=== PATIENT | female | born 2000 | race African-American/Black ===

== ENCOUNTER 2020-03-26 12:52 | Inpatient (IN) | payer OTHER ==
--- NOTE | 2020-03-26 13:44 | HP ---
Past Medical History - Primary Care Physician PCP:: MNR - Admission Chief Complaint: Sent from clinic for delivery due to transverse presentation and oligohydramnios History Source: Patient - Past Surgical History Past Surgical History: Yes: None Hx Myomectomy: No Hx Transabdominal Cerclage: No - Smoking History Smoking history: Unknown if ever smoked - Alcohol/Substance Use Hx Alcohol Use: No History of Substance Use: reports: None - Social History History of Recent Travel: No Home Medications - Allergies Allergies/Adverse Reactions: Allergies Allergy/AdvReac Type Severity Reaction Status Date / Time No Known Allergies Allergy Verified 03/26/20 13:37 Physical Exam - Maternity Constitutional: Yes: No Distress Cardiovascular: Yes: Regular Rate and Rhythm Lungs: Clear to auscultation - Abdominal Exam/OB Number of Fetuses: Single Presentation: Transverse Contractions: Yes Regularity: Irritability Intensity: Unaware Monitor Mode: External Heart Rate (range): 130 Category: I Accelerations: Uniform Decelerations: None - Vaginal Exam/OB Vaginal Bleeding: No Speculum Exam: No - Physical Exam Edema: No Problem List - Problems (1) 40 weeks gestation of Code(s): Z3A.40 - 40 WEEKS GESTATION OF (2) Transverse presentation, antepartum Code(s): O32.2XX0 - MATERNAL CARE FOR TRANSVERSE AND OBLIQUE LIE, UNSP Assessment/Plan 19 year old at 40w3d with transverse presentation Oligohydramnios PPD positive - s/p treatment x 6 months GBS negative
[2020-03-26] MEDS ORDERED: CITRIC ACID/SODIUM CITRATE 30 ML UNIT-DOSE CUP PO ONE (13:52)
[2020-03-26 13:57] VITALS: BMI 31.8
[2020-03-26 14:42] LABS: BASO % 0.3 % (0-2.0); EOS % 0.9 % (0-4.5); HEMATOCRIT 30.8 % (32.4-45.2); HEMOGLOBIN 10.6 GM/dL (10.7-15.3); LYMPH % 18.7 % (8-40); MCH 27.1 pg (25.7-33.7); MCHC 34.5 g/dl (32.0-36.0); MEAN CELL VOLUME 78.7 fl (80-96); MEAN PLT VOLUME 9.8 fl (7.5-11.1); MONO % 22.1 % (3.8-10.2); PLATELET COUNT 177 K/MM3 (134-434); RBC 3.91 M/mm3 (3.60-5.2); RDW 14.1 % (11.6-15.6); WHITE BLOOD COUNT 7.4 K/mm3 (4.0-10.0)
[2020-03-26 14:43] LABS: INR 0.9 (0.83-1.09); PROTHROMBIN TIME (PATIENT) 10.6 SEC (9.7-13.0)
[2020-03-26 14:46] LABS: ACTIVATED PTT 26.7 SECONDS (25.2-36.5)
[2020-03-26 14:54] LABS: CALCIUM 8.6 mg/dL (8.5-10.1); CREATININE 0.6 mg/dL (0.55-1.3); POTASSIUM 4.4 mmol/L (3.5-5.1)
[2020-03-26 15:27] LABS: ANISOCYTOSIS 0; MACROCYTOSIS 0; PLATELET ESTIMATE NORMAL
[2020-03-26] MEDS: ELECTROLYTE-148 SOLN 1,000 ML IV SCH (16:03)
[2020-03-26] MEDS ORDERED: ONDANSETRON 4 MG/2 ML VIAL IVPUSH PRN (16:19)
[2020-03-26] MEDS ORDERED: morphine SULFATE/PF 0.5 MG/ML (2cc Syringe - QUVA) EP ONE (16:19)
[2020-03-26] MEDS ORDERED: ceFAZolin SODIUM 1 GM VIAL ONE (16:25)
[2020-03-26] MEDS ORDERED: OXYTOCIN 10 UNITS/ML VIAL ONE ×2 (16:50→16:56)
[2020-03-26] MEDS ORDERED: METHYLERGONOVINE MALEATE 0.2 MG/1 ML AMP IM PRN (17:30)
[2020-03-26] MEDS ORDERED: oxyCODONE HCL 5 MG TABLET PO PRN (17:30)
--- NOTE | 2020-03-26 17:30 | OP ---
Operative Note - Note: Operative Date: 03/26/20 Pre-Operative Diagnosis: Transverse lie, oligohydramnios Operation: primary delivery Findings: Breech presentation Normal ovaries and tubes live male Post-Operative Diagnosis: Same as Pre-op Surgeon: Breann Clemens Bioinformatics Computer Scientist: Mauro Valenzuela Anesthesiologist/JACKAROO: Tra Haji Anesthesia: Spinal Estimated Blood Loss (mls): 600
[2020-03-26 17:39] LABS: CORD BASE EXCESS -6.9 mmol/L (0-2); CORD PCO2 45.2 mmHg (30-78); CORD pH 7.263 (7.14-7.44)
[2020-03-26 17:41] LABS: CORD BASE EXCESS -5.4 mmol/L (0-2); CORD PCO2 38.6 mmHg (30-78); CORD pH 7.332 (7.14-7.44)
[2020-03-26] MEDS ORDERED: OXYTOCIN 20 UNITS in 0.9% NS 20 UNIT/1,000 ML INFUS.BAG IV ONE (17:45)
[2020-03-26] MEDS: OXYTOCIN 20 UNITS in 0.9% NS 20 UNIT/1,000 ML INFUS.BAG IV SCH (18:45)
[2020-03-26] MEDS: IBUPROFEN 600 MG TABLET (FP) PO PRN (23:27)
[2020-03-26] MEDS: SIMETHICONE 80 MG TAB.CHEW (FP) PO PRN (23:27)
[2020-03-27] MEDS: IBUPROFEN 600 MG TABLET (FP) PO PRN ×3 (07:48→18:02)
[2020-03-27 08:32] LABS: BASO % 0.3 % (0-2.0); EOS % 0.4 % (0-4.5); HEMATOCRIT 33.2 % (32.4-45.2); HEMOGLOBIN 11.2 GM/dL (10.7-15.3); LYMPH % 9.3 % (8-40); MCHC 33.7 g/dl (32.0-36.0); MEAN PLT VOLUME 9.9 fl (7.5-11.1); MONO % 16.7 % (3.8-10.2); NEUT % 73.3 % (42.8-82.8); PLATELET COUNT 150 K/MM3 (134-434); RBC 4.14 M/mm3 (3.60-5.2); RDW 13.9 % (11.6-15.6); WHITE BLOOD COUNT 11.6 K/mm3 (4.0-10.0)
[2020-03-27] MEDS: ENOXAPARIN NA (PORCINE) 40 MG/0.4 ML DISP.SYRIN SQ SCH (09:36)
--- NOTE | 2020-03-27 09:57 | PN ---
Progress Note (short form) - Note Progress Note: Post op day#1.S/p c section under spinal anesthesia with duramorph une ventful.Patient stable and does not c/o pain.No any anesthesia related problem.Patient DC from the anesthesia care.
--- NOTE | 2020-03-27 11:18 | PN ---
Post Progress Note - Subjective Subjective: Patient c/o mild incisional pain when walking, otherwise feels well. Post Day: 1 Type of Delivery: Primary C/S Vital Signs: Vital Signs Temperature 99.0 F 03/27/20 07:42 Pulse Rate 84 03/26/20 23:56 Respiratory Rate 18 03/27/20 09:00 Blood Pressure 111/60 03/26/20 23:56 O2 Sat by Pulse Oximetry (%) 100 03/26/20 18:30 Breast Exam: Yes: Soft Uterus: Yes: Fundus Firm Incision: Yes: Dressing dry and intact Abdomen/GI: Yes: Abdomen soft Lochia: Yes: Rubra Lochia, amount: Small Extremities: Yes: Calves non-tender Activity: Ambulating - Labs Labs: CBC WBC 11.6 K/mm3 (4.0-10.0) H 03/27/20 07:54 RBC 4.14 M/mm3 (3.60-5.2) 03/27/20 07:54 Hgb 11.2 GM/dL (10.7-15.3) 03/27/20 07:54 Hct 33.2 % (32.4-45.2) 03/27/20 07:54 MCV 80.0 fl (80-96) 03/27/20 07:54 MCH 27.0 pg (25.7-33.7) 03/27/20 07:54 MCHC 33.7 g/dl (32.0-36.0) 03/27/20 07:54 RDW 13.9 % (11.6-15.6) 03/27/20 07:54 Plt Count 150 K/MM3 (134-434) 03/27/20 07:54 MPV 9.9 fl (7.5-11.1) 03/27/20 07:54 Absolute Neuts (auto) 8.5 K/mm3 (1.5-8.0) H 03/27/20 07:54 Neutrophils % 73.3 % (42.8-82.8) D 03/27/20 07:54 Neutrophils % (Manual) 64.6 % (42.8-82.8) 03/26/20 14:00 Band Neutrophils % 0.0 % 03/26/20 14:00 Lymphocytes % 9.3 % (8-40) D 03/27/20 07:54 Lymphocytes % (Manual) 15.2 % (8-40) 03/26/20 14:00 Monocytes % 16.7 % (3.8-10.2) H 03/27/20 07:54 Monocytes % (Manual) 15 % (3.8-10.2) H 03/26/20 14:00 Eosinophils % 0.4 % (0-4.5) 03/27/20 07:54 Eosinophils % (Manual) 2.0 % (0-4.5) 03/26/20 14:00 Basophils % 0.3 % (0-2.0) 03/27/20 07:54 Basophils % (Manual) 0.0 % (0-2.0) 03/26/20 14:00 Myelocytes % (Man) 1 % (0-2) 03/26/20 14:00 Promyelocytes % (Man) 0 % (0-2) 03/26/20 14:00 Blast Cells % (Manual) 0 % (0-0) 03/26/20 14:00 Nucleated RBC % 0 % (0-0) 03/27/20 07:54 Metamyelocytes 2 % (0-2) 03/26/20 14:00 Hypochromia 0 03/26/20 14:00 Platelet Estimate Normal 03/26/20 14:00 Polychromasia 0 03/26/20 14:00 Poikilocytosis 0 03/26/20 14:00 Anisocytosis 0 03/26/20 14:00 Microcytosis 0 03/26/20 14:00 Macrocytosis 0 03/26/20 14:00 Assessment/Plan POD #1, hemodynamically stable Monitor vital signs Dressing to be removed in AM Pain management Regular diet Ambulation encouraged Consider discharge home in 1-2 days
[2020-03-27] MEDS: SIMETHICONE 80 MG TAB.CHEW (FP) PO PRN ×2 (13:44→20:24)
[2020-03-27] MEDS ORDERED: BISACODYL 10 MG SUPP.RECT RC PRN (17:30)
[2020-03-27] MEDS: ELECTROLYTE-148 SOLN 1,000 ML IV SCH (18:49)
[2020-03-27] MEDS: OXYTOCIN 20 UNITS in 0.9% NS 20 UNIT/1,000 ML INFUS.BAG IV SCH (18:49)
[2020-03-27] MEDS ORDERED: oxyCODONE HCL 5 MG TABLET PO PRN (19:55)
[2020-03-27] MEDS: ACETAMINOPHEN 325 MG TABLET (FP) PO PRN (20:25)
[2020-03-27] MEDS: oxyCODONE HCL 5 MG TABLET PO PRN (20:25)
[2020-03-28] MEDS: oxyCODONE HCL 5 MG TABLET PO PRN ×2 (04:35→22:12)
[2020-03-28] MEDS: ACETAMINOPHEN 325 MG TABLET (FP) PO PRN ×4 (04:38→22:13)
[2020-03-28] MEDS: SIMETHICONE 80 MG TAB.CHEW (FP) PO PRN ×3 (04:38→22:13)
[2020-03-28] MEDS: IBUPROFEN 600 MG TABLET (FP) PO PRN ×2 (09:58→16:01)
[2020-03-28] MEDS: ENOXAPARIN NA (PORCINE) 40 MG/0.4 ML DISP.SYRIN SQ SCH (10:04)
--- NOTE | 2020-03-28 14:20 | PN ---
Post Progress Note Type of Delivery: Primary C/S Vital Signs: Vital Signs Temperature 97.6 F 03/28/20 10:00 Pulse Rate 66 03/28/20 10:00 Respiratory Rate 20 03/28/20 10:00 Blood Pressure 95/45 L 03/28/20 10:00 O2 Sat by Pulse Oximetry (%) 100 03/26/20 18:30 Breast Exam: Yes: Soft Uterus: Yes: Fundus Firm Incision: Yes: Dressing dry and intact, Other (right side with superficial separation 2 cm - reinforced with steristrips; no drainage; subcut closure) Abdomen/GI: Yes: Abdomen soft Lochia, amount: Small Extremities: Yes: Calves non-tender - Labs Labs: CBC WBC 11.6 K/mm3 (4.0-10.0) H 03/27/20 07:54 RBC 4.14 M/mm3 (3.60-5.2) 03/27/20 07:54 Hgb 11.2 GM/dL (10.7-15.3) 03/27/20 07:54 Hct 33.2 % (32.4-45.2) 03/27/20 07:54 MCV 80.0 fl (80-96) 03/27/20 07:54 MCH 27.0 pg (25.7-33.7) 03/27/20 07:54 MCHC 33.7 g/dl (32.0-36.0) 03/27/20 07:54 RDW 13.9 % (11.6-15.6) 03/27/20 07:54 Plt Count 150 K/MM3 (134-434) 03/27/20 07:54 MPV 9.9 fl (7.5-11.1) 03/27/20 07:54 Absolute Neuts (auto) 8.5 K/mm3 (1.5-8.0) H 03/27/20 07:54 Neutrophils % 73.3 % (42.8-82.8) D 03/27/20 07:54 Neutrophils % (Manual) 64.6 % (42.8-82.8) 03/26/20 14:00 Band Neutrophils % 0.0 % 03/26/20 14:00 Lymphocytes % 9.3 % (8-40) D 03/27/20 07:54 Lymphocytes % (Manual) 15.2 % (8-40) 03/26/20 14:00 Monocytes % 16.7 % (3.8-10.2) H 03/27/20 07:54 Monocytes % (Manual) 15 % (3.8-10.2) H 03/26/20 14:00 Eosinophils % 0.4 % (0-4.5) 03/27/20 07:54 Eosinophils % (Manual) 2.0 % (0-4.5) 03/26/20 14:00 Basophils % 0.3 % (0-2.0) 03/27/20 07:54 Basophils % (Manual) 0.0 % (0-2.0) 03/26/20 14:00 Myelocytes % (Man) 1 % (0-2) 03/26/20 14:00 Promyelocytes % (Man) 0 % (0-2) 03/26/20 14:00 Blast Cells % (Manual) 0 % (0-0) 03/26/20 14:00 Nucleated RBC % 0 % (0-0) 03/27/20 07:54 Metamyelocytes 2 % (0-2) 03/26/20 14:00 Hypochromia 0 03/26/20 14:00 Platelet Estimate Normal 03/26/20 14:00 Polychromasia 0 03/26/20 14:00 Poikilocytosis 0 03/26/20 14:00 Anisocytosis 0 03/26/20 14:00 Microcytosis 0 03/26/20 14:00 Macrocytosis 0 03/26/20 14:00 Assessment/Plan Postop day 2 infant discharge delayed possible tomorrow discharge plan in am
[2020-03-29] MEDS: oxyCODONE HCL 5 MG TABLET PO PRN (04:16)
[2020-03-29] MEDS: ACETAMINOPHEN 325 MG TABLET (FP) PO PRN ×3 (04:17→19:47)
[2020-03-29] MEDS: IBUPROFEN 600 MG TABLET (FP) PO PRN ×2 (09:52→19:48)
--- NOTE | 2020-03-29 09:52 | DS ---
Physical Exam-OUT PATIENT THERAPIST Vital Signs: Vital Signs Temperature 98.0 F 03/28/20 21:46 Pulse Rate 90 03/28/20 21:46 Respiratory Rate 18 03/28/20 21:46 Blood Pressure 132/58 L 03/28/20 21:46 O2 Sat by Pulse Oximetry (%) 100 03/26/20 18:30 Constitutional: Yes: Well Nourished Eyes: Yes: WNL HENT: Yes: WNL Neck: Yes: WNL Respiratory: Yes: Regular Uterus: Yes: Firm ....Post : Yes: Uterus non-tender Edema: No Wound/Incision: Yes: Clean/Dry, Steri Strips Labs: CBC, BMP 03/27/20 07:54 03/26/20 14:00 Delivery - Delivery Type of Anesthesia: Spinal Episiotomy/Laceration: None EBL (cc): 600 Delivery, Single - Stages of Labor Date 1st Stage Initiatied: 03/26/20 Time 1st Stage Initiated: 15:10 Date of Delivery: 03/26/20 Time of Delivery: 16:51 Time Placenta Delivered: 16:52 - Condition of Infant Shelter Case Manager/Airport Operations Manager Present: Yes Name: Melissa Chun Gender: Male Weight: 3.345 kg Total Hours ROM (Hrs/Mins): 3mins - 1 Minute Total Score: 9 5 Minutes Total Score: 9 - [place] Feeding Plan Initial Plan: Elected not to breastfeed exclusively throughout hospitalization Remarks - Remarks Remarks: s/p c section for transverse lie/ and olighydramnios Discharge Summary Problems reviewed: Yes Reason For Visit: Current Active Problems 40 weeks gestation of (Acute) Transverse presentation, antepartum (Acute) Procedures: Principal: c section Hospital Course: unremarkable Condition: Good - Instructions Diet, Activity, Other Instructions: regular Disposition: HOME - Home Medications Comprehensive Discharge Medication List: Ambulatory Orders Pnv No.95/Ferrous Fum/Folic AC [ Formula] 1 each PO DAILY 03/26/20 Prescription Drug Monitoring Program (I-STOP) results: I-STOP reviewed and no issues identified
[2020-03-29] MEDS: SIMETHICONE 80 MG TAB.CHEW (FP) PO PRN ×2 (09:54→19:47)
[2020-03-29] MEDS: ENOXAPARIN NA (PORCINE) 40 MG/0.4 ML DISP.SYRIN SQ SCH (09:54)
[2020-03-29 11:12] LABS: BASO % 0.2 % (0-2.0); EOS % 2.3 % (0-4.5); HEMATOCRIT 27.6 % (32.4-45.2); HEMOGLOBIN 9.4 GM/dL (10.7-15.3); LYMPH % 16.5 % (8-40); MCH 26.9 pg (25.7-33.7); MCHC 34.1 g/dl (32.0-36.0); MEAN CELL VOLUME 78.9 fl (80-96); MEAN PLT VOLUME 9.4 fl (7.5-11.1); MONO % 15.5 % (3.8-10.2); NEUT % 65.5 % (42.8-82.8); PLATELET COUNT 193 K/MM3 (134-434); RDW 14.2 % (11.6-15.6); WHITE BLOOD COUNT 8.7 K/mm3 (4.0-10.0)
[2020-03-30 09:02] VITALS: BP 120/67; PULSE 66; TEMP 98.2
--- NOTE | 2020-03-30 10:00 | DS ---
Physical Examination Vital Signs: Vital Signs Temperature 98.2 F 03/30/20 09:00 Pulse Rate 66 03/30/20 09:00 Respiratory Rate 20 03/30/20 09:00 Blood Pressure 120/67 03/30/20 09:00 O2 Sat by Pulse Oximetry (%) 100 03/26/20 18:30 Findings/Remarks: S/P c/s stable, pt happy Constitutional: Yes: Well Nourished, No Distress Eyes: Yes: WNL HENT: Yes: WNL Neck: Yes: WNL Cardiovascular: Yes: WNL Respiratory: Yes: WNL Gastrointestinal: Yes: WNL, Normal Bowel Sounds ...Rectal Exam: Yes: WNL, Deferred Renal/: Yes: WNL Breast(s): Yes: WNL Musculoskeletal: Yes: WNL Edema: Yes Edema: LLE: 1+, RLE: 1+ Integumentary: Yes: WNL Wound/Incision: Yes: Clean/Dry Neurological: Yes: WNL ...Motor Strength: WNL (May go home F/U with Dr Guy in 7-10 days) Psychiatric: Yes: WNL Labs: CBC, BMP 03/29/20 10:54 03/26/20 14:00 Discharge Summary Problems reviewed: Yes Reason For Visit: Current Active Problems 40 weeks gestation of (Acute) Transverse presentation, antepartum (Acute) Hospital Course: unremarkable Condition: Good - Instructions Diet, Activity, Other Instructions: regular; PT INSTRUCTED TO CALL CLINIC FOR 1 WEEK FOLLOW UP APPOINTMENT. Referrals: Breann Clemens MD [Staff Physician] - Disposition: HOME - Home Medications Comprehensive Discharge Medication List: Ambulatory Orders Pnv No.95/Ferrous Fum/Folic AC [ Formula] 1 each PO DAILY 03/26/20 Ibuprofen 600 mg PO Q6H PRN #30 tablet 03/29/20
[2020-03-30] MEDS: ENOXAPARIN NA (PORCINE) 40 MG/0.4 ML DISP.SYRIN SQ SCH (10:05)
[2020-03-30] MEDS: SIMETHICONE 80 MG TAB.CHEW (FP) PO PRN (10:06)
[2020-03-30] MEDS: ACETAMINOPHEN 325 MG TABLET (FP) PO PRN (10:06)
[2020-03-30] MEDS: IBUPROFEN 600 MG TABLET (FP) PO PRN (10:06)
--- NOTE | 2020-03-31 13:10 | PATH ---
Surgical Pathology Report Patient Name: BRETT WESTON [facility]. Rec. #: [id number] /Age/Gender: 2000 (Age: 19) / F Account: [id number] Location: [facility] OBS/QUALITATIVE EXECUTIVE RESEARCHER Taken: 03/26/2020 Received: 03/29/2020 Reported: 03/31/2020 Physicians: Breann Clemens M.D. Specimen(s) Received PLACENTA Clinical History , 40.3 weeks, oligo, transverse lie Final Diagnosis PLACENTA: THIRD TRIMESTER PLACENTA WITH FOCAL SUBCHORIONIC FIBRIN DEPOSITION. TRIVASCULAR CORD. MEMBRANES WITH NO DIAGNOSTIC ABNORMALITIES. Electronically Signed Becky Musa M.D. Gross Description The specimen is received fresh labeled placenta and is a 563 gram, 14.5 x 14.5 x 4.0 cm. placenta with attached membranes and umbilical cord. The attached membranes are de santiago, translucent with focal opacities and insert marginally. The umbilical cord measures 25 cm. in length and averages 1 cm. in diameter. The cord inserts eccentrically, 1 cm. to the nearest margin. No true knots or strictures are identified. Cut surface of the umbilical cord reveals 3 vessels. The surface is hughes-blue with minimal fibrin deposition and appropriate caliber vessels. The maternal surface is red-brown and intact. Sectioning reveals red-brown, spongy parenchyma. No lesions are identified. [employer] Chief sections are submitted in three cassettes as follows: 1- membrane rolls and umbilical cord; 2-3- full thickness sections of placenta. 03/30/2020 [facility]03/30/2020
--- NOTE | 2020-04-07 11:19 | OP ---
DATE OF OPERATION: 03/26/2020 PREOPERATIVE DIAGNOSIS: This is a 19-year-old G1, para 0 at 40 weeks and 3 days with oligohydramnios and transverse lie. POSTOPERATIVE DIAGNOSIS: Breech presentation. OPERATION: Primary delivery. FINDINGS: Breech presentation. Normal ovaries and tubes. Live male , 9, 9. SURGEON: Breann Clemens MD SPRAY GUN REPAIRER: Mauro Valenzuela MD ANESTHESIOLOGIST: Tra Haji MD ANESTHESIA: Spinal. ESTIMATED BLOOD LOSS: 600 mL. PROCEDURE: An informed consent was taken from the patient. The patient was then taken to the operating room where spinal anesthesia was administered. The patient was then placed in the dorsal supine position with a leftward tilt. The patient was then prepped and draped in normal sterile fashion. A Pfannenstiel skin incision was performed with a scalpel. The incision was then carried down with the Bovie. An incision was performed with the Bovie on the fascia at the midline and then was extended bilaterally with the Bovie. Two straight Sanket clamps were used to grasp the lower portion of the fascia, and the underlying rectus muscles was dissected off bluntly and sharply. The same procedure was performed in the upper portion of the fascia. The rectus muscle was then in the midline, and entry into the peritoneal cavity was performed bluntly. The lower uterine segment was identified after placing the bladder blade. Lower transverse uterine incision was performed with a scalpel. Amniotomy was performed, clear fluid was noted. The incision was then extended bilaterally bluntly. The was delivered in breech presentation without difficulty. The cord was clamped and cut, and the infant was handed to the waiting manager merchandise. Placenta was then delivered manually. The uterus was then delivered through the abdominal incision. The inside of the uterus was cleared of all clots and membranes with dry laparotomy sponges. C clamps and Allis clamps were placed on the uterine incision to obtain hemostasis. The uterine incision was then repaired in 1 layer with TPX 1-0 Vicryl suture. Additional [id number] sutures were placed to obtain hemostasis. The uterus was then returned to the abdominal cavity, and gutters were cleared of all clots with moist laparotomy sponges. The uterine incision was then reinspected and found to be hemostatic. The peritoneum was then identified. The peritoneum was then approximated with 2-0 chromic in running fashion. The fascia was then identified. The fascia was repaired with 1-0 Vicryl suture in running fashion. Irrigation of the subcutaneous tissue was performed. The subcutaneous tissue was then approximated with plain gut suture with interrupted stitches. The skin was then closed subcuticularly with 3-0 Vicryl suture. The patient tolerated well the procedure. The count was correct x2. The patient was then transferred to recovery room in stable condition. MD GAGE ROJAS/[id number]
== END 2020-03-30 20:00 | disposition home or self-care (01) | DRG 540 ==
LOC: JLDR 12:52 → J3W 20:20
PROVIDERS: ADMIT Obstetrics & Gynecology; ATTEND Obstetrics & Gynecology
PROC: 10D00Z1 Extraction of Products of Conception, Low, Open Approach (ICD-10-PCS; principal; 2020-03-26)
DX: O82 Encounter for cesarean delivery without indication (principal); O41.03X0 Oligohydramnios, third trimester, not applicable or unspecified; O32.2XX0 Maternal care for transverse and oblique lie, not applicable or unspecified; O32.1XX0 Maternal care for breech presentation, not applicable or unspecified; O48.0 Post-term pregnancy; Z3A.40 40 weeks gestation of pregnancy; Z37.0 Single live birth
CPT/HCPCS: 36415; 36600; 80048; 82803; 85025; 85610; 85730; 86780; 86850; 86900; 86901; 87389; 88307-TC; U0003